=== PATIENT | female | born 1995 | race Two or more races ===

== ENCOUNTER 2018-01-26 13:35 | Outpatient (CLI) | payer OTHER | END 2018-01-26 13:45 | disposition home or self-care (01) | LOC: LAB 13:35 | DX: Z00.00 Encounter for general adult medical examination without abnormal findings (principal) ==

== ENCOUNTER → 2018-01-26 | Outpatient (CLI) | payer OTHER ==
[~2018-01-26] MED LIST: KETOCONAZOLE120 ML TP; ZOVIRAX800 M1 PO; ZOVIRAX800 MG PO
== END | disposition home or self-care (01) ==
LOC: PPHC 14:46
DX: Z01.89 Encounter for other specified special examinations (principal)

== ENCOUNTER 2018-02-24 12:33 | Outpatient (CLI) | payer OTHER | END 2018-02-24 12:43 | disposition home or self-care (01) | LOC: LAB 12:33 | DX: Z00.00 Encounter for general adult medical examination without abnormal findings (principal); M25.50 Pain in unspecified joint; M54.5 Low back pain ==

== ENCOUNTER → 2018-03-09 | Outpatient (CLI) | payer OTHER | END | disposition home or self-care (01) | LOC: PPHC 13:02 | DX: R05 Cough (principal) ==

== ENCOUNTER 2022-02-09 11:39 | Emergency (ER) | payer OTHER ==
[~2022-02-09] VITALS: Ht 167.6 cm; Wt 63.5 kg
[~2022-02-09 11:39] MED LIST changes: +DIALYVITE 800-1 EACH; +PRENA1 TRUE CO1 EACH
== END 2022-02-09 14:23 | disposition left against medical advice (07) ==
LOC: ER 11:39
DX: Z53.21 Procedure and treatment not carried out due to patient leaving prior to being seen by health care provider (principal)

== ENCOUNTER 2022-05-16 08:35 | Emergency (ER) | payer OTHER ==
[~2022-05-16] VITALS: Ht 167.6 cm; Wt 65.8 kg
== END 2022-05-16 13:40 | disposition home or self-care (01) ==
LOC: ER 08:35
DX: N39.0 Urinary tract infection, site not specified (principal)

== ENCOUNTER 2023-05-05 09:34 | Emergency (ER) | payer OTHER ==
[~2023-05-05] VITALS: Ht 167.6 cm; Wt 63.5 kg
== END 2023-05-05 12:49 | disposition home or self-care (01) ==
LOC: ER 09:34
DX: R53.81 Other malaise (principal); N39.0 Urinary tract infection, site not specified; M94.0 Chondrocostal junction syndrome [Tietze]; Z20.822 Contact with and (suspected) exposure to COVID-19